=== PATIENT | male | born 1960 | race Caucasian/White ===

== ENCOUNTER 2019-08-23 00:42 | Emergency (ER) | payer MEDICAID ==
[~2019-08-23] VITALS: Ht 182.9 cm; Wt 95.5 kg
[2019-08-23] MEDS ORDERED: GABA-529 PO (01:10)
[2019-08-23] MEDS ORDERED: BUSP5TAB20 PO (01:10)
[2019-08-23] MEDS ORDERED: ALBU8.5H8 IH (01:10)
[2019-08-23 04:46] VITALS: BP 133/87
== END 2019-08-23 06:35 | disposition left against medical advice (07) ==
LOC: EMS 00:46
DX: R06.02 Shortness of breath (principal); Z53.21 Procedure and treatment not carried out due to patient leaving prior to being seen by health care provider

== ENCOUNTER 2024-06-28 20:36 | Emergency (ER) | payer MEDICAID ==
[~2024-06-28] VITALS: Ht 182.9 cm; Wt 79.5 kg
[~2024-06-28 20:36] MED LIST: ALBU8.5H8 IH; BUSP5TAB20 PO; GABA-1216 PO
[2024-06-28 20:53] VITALS: BP 143/94; PULSE 90; RESP 20; TEMP 98.2
[2024-06-28] MEDS ORDERED: PROPARACAINE HCL 0.5% 15 ML OPHTHALMIC SOLUTION OU ONE (22:30)
[2024-06-28] MEDS ORDERED: FLUORESCEIN SODIUM 1 MG STRIP OU ONE (22:30)
== END 2024-06-28 22:45 | disposition left against medical advice (07) ==
LOC: EMS 20:36
DX: H57.13 Ocular pain, bilateral (principal); Z53.21 Procedure and treatment not carried out due to patient leaving prior to being seen by health care provider